=== PATIENT | male | born 1950 | race African-American/Black ===

== ENCOUNTER 2018-08-16 14:59 | Inpatient (IN) | payer MEDICARE, OTHER ==
[~2018-08-16] VITALS: Ht 167.6 cm; Wt 97.1 kg
[~2018-08-16 14:59] MED LIST: ASPI-650 PO; ASPI325T17 PO; CHOL200024 PO; DIAZ10TA PO; GLUC1TAB48 PO; MULT-658 PO; OMEG-14 PO; OXYC-307 PO; Testosterone TD; VALS1TAB28 PO
[2018-08-16 15:43] LABS: BASOPHILS # (AUTO) 0.04 x10^3/uL (0-0.1); BASOPHILS % (AUTO) 0 % (0-1); EOSINOPHILS # (AUTO) 0.49 x10^3/uL (0-0.4); EOSINOPHILS % (AUTO) 5 % (1-7); LYMPHOCYTES # (AUTO) 1.85 x10^3/uL (1-3.4); LYMPHOCYTES % (AUTO) 19 % (22-44); MD NO; MEAN CORPUSCULAR HEMOGLOBIN 33.6 pg (27.5-34.5); MEAN CORPUSCULAR VOLUME 98.8 fL (81-97); MEAN PLATELET VOLUME 7.9 fL (7.4-10.4); MONOCYTES # (AUTO) 1.07 x10^3/uL (0.2-0.8); MONOCYTES % (AUTO) 11 % (2-9); NEUTROPHILS # (AUTO) 6.37 x10^3/uL (1.8-6.8); NEUTROPHILS % (AUTO) 65 % (42-75); PLATELET COUNT 223 x10^3/uL (130-400); RED BLOOD COUNT 5.32 x10^6/uL (4.38-5.82); RED CELL DISTRIBUTION WIDTH 14.5 % (9.4-14.8)
[2018-08-16 15:51] LABS: ALBUMIN 3.6 g/dL (3.4-5.0); ANION GAP 9 mmol/L (5-15); CHLORIDE 105 mmol/L (98-107); CREATININE 1.12 mg/dL (0.7-1.3)
[2018-08-16 15:55] LABS: TROPONIN I 0.017 ng/mL (0.000-0.045)
[2018-08-16 16:04] LABS: INTERNATIONAL NORMALIZED RATIO 1.01 (0.93-1.1); PROTHROMBIN TIME 10.4 Seconds (9.6-11.5)
[2018-08-16] MEDS ORDERED: SODIUM CHLORIDE FLUSH 10ML SYR IVF PRN (18:00)
[2018-08-16] MEDS ORDERED: BISACODYL 10 MG SUPP PR PRN (19:30)
[2018-08-16] MEDS ORDERED: OXYcodone/APAP 10/325MG TABLET PO PRN (19:30)
[2018-08-16] MEDS ORDERED: ONDANSETRON ODT 4 MG PO PRN (19:30)
[2018-08-16] MEDS ORDERED: ACETAMINOPHEN 325 MG TABLET PO PRN (19:30)
[2018-08-16] MEDS ORDERED: POLYETHYLENE GLYCOL 17 GM PACKET PO PRN (19:30)
[2018-08-16 19:58] VITALS: BP 129/84
[2018-08-16 19:58] LABS: FOLATE LEVEL > 20.0 ng/mL (3.1-17.5)
[2018-08-16] MEDS: SODIUM CHLORIDE FLUSH 10ML SYR IVF SCH (21:00)
[2018-08-16] MEDS: ATORVASTATIN 40 MG TABLET PO SCH (21:55)
[2018-08-16 22:13] VITALS: BP 129/84
[2018-08-17 01:58] VITALS: BP 111/75
[2018-08-17 05:05] LABS: BASOPHILS # (AUTO) 0.07 x10^3/uL (0-0.1); BASOPHILS % (AUTO) 1 % (0-1); EOSINOPHILS # (AUTO) 0.65 x10^3/uL (0-0.4); EOSINOPHILS % (AUTO) 7 % (1-7); LYMPHOCYTES # (AUTO) 2.04 x10^3/uL (1-3.4); LYMPHOCYTES % (AUTO) 23 % (22-44); MD NO; MEAN CORPUSCULAR HEMOGLOBIN 33.8 pg (27.5-34.5); MEAN CORPUSCULAR VOLUME 99.3 fL (81-97); MEAN PLATELET VOLUME 8.1 fL (7.4-10.4); MONOCYTES # (AUTO) 0.91 x10^3/uL (0.2-0.8); MONOCYTES % (AUTO) 10 % (2-9); NEUTROPHILS # (AUTO) 5.39 x10^3/uL (1.8-6.8); NEUTROPHILS % (AUTO) 60 % (42-75); PLATELET COUNT 222 x10^3/uL (130-400); RED BLOOD COUNT 5.13 x10^6/uL (4.38-5.82); RED CELL DISTRIBUTION WIDTH 14.6 % (9.4-14.8)
[2018-08-17 05:15] LABS: ALANINE AMINOTRANSFERASE 38 U/L (12-78); ALBUMIN 3.2 g/dL (3.4-5.0); ANION GAP 7 mmol/L (5-15); CALCIUM 7.9 mg/dL (8.5-10.1); CHLORIDE 105 mmol/L (98-107); CHOLESTEROL, TOTAL 110 mg/dL (140-239); CREATININE 1.04 mg/dL (0.7-1.3)
[2018-08-17 05:17] LABS: ALKALINE PHOSPHATASE 46 U/L (45-117); BILIRUBIN,TOTAL 0.2 mg/dL (0.2-1.0); CHOL/HDL RATIO 2.6; HDL CHOL % 38 % (26-37); HDL CHOLESTEROL (DIRECT) 42 mg/dL (40-60); LDL CHOLESTEROL,CALCULATED 49 mg/dL (54-169); LDL/HDL RATIO 1.2 (0.5-3.0); TOTAL PROTEIN 6.6 g/dL (6.4-8.2); TRIGLYCERIDES 95 mg/dL (50-200); VLDL CHOLESTEROL 19 mg/dL (0-25)
[2018-08-17] MEDS ORDERED: ZOLP5TAB6 PO (08:14)
[2018-08-17] MEDS: VALSARTAN 320 MG TABLET PO SCH (08:15)
[2018-08-17] MEDS: MULTIVITAMIN 1 TABLET PO SCH (08:16)
[2018-08-17] MEDS: SODIUM CHLORIDE FLUSH 10ML SYR IVF SCH ×2 (08:16→21:00)
[2018-08-17] MEDS: ASPIRIN 325 MG TABLET PO SCH (08:16)
[2018-08-17] MEDS: CHOLECALCIFEROL 1,000 UNIT TABLET PO SCH (08:16)
[2018-08-17] MEDS: CLOPIDOGREL 75 MG TABLET PO SCH (08:16)
[2018-08-17] MEDS: OMEGA-3/FISH OIL CAPSULE PO SCH (08:16)
[2018-08-17] MEDS: HYDROCHLOROTHIAZIDE 12.5 MG CAPSULE PO SCH (08:17)
[2018-08-17] MEDS: TESTOSTERONE TD SCH (08:22)
[2018-08-17] MEDS: SENNA/DOCUSATE TABLET PO SCH (08:22)
[2018-08-17] MEDS ORDERED: [UNRECOGNIZED DRUG - OTHER] PO SCH (09:00)
[2018-08-17] MEDS ORDERED: GLUCOSAM CHONDRO HERB PO SCH (09:00)
[2018-08-17 09:10] VITALS: BP 116/75
[2018-08-17] MEDS ORDERED: SPIR50TA4 PO (10:14)
[2018-08-17] MEDS ORDERED: ATOR10TA9 PO (10:31)
[2018-08-17 13:33] VITALS: BP 127/82
[2018-08-17 19:25] VITALS: BP 118/72
[2018-08-17] MEDS: ATORVASTATIN 40 MG TABLET PO SCH (21:06)
[2018-08-18 01:50] VITALS: BP 109/69
[2018-08-18 08:11] VITALS: BP 104/71
[2018-08-18] MEDS: HYDROCHLOROTHIAZIDE 12.5 MG CAPSULE PO SCH (08:20)
[2018-08-18] MEDS: MULTIVITAMIN 1 TABLET PO SCH (08:21)
[2018-08-18] MEDS: CHOLECALCIFEROL 1,000 UNIT TABLET PO SCH (08:21)
[2018-08-18] MEDS: OMEGA-3/FISH OIL CAPSULE PO SCH (08:21)
[2018-08-18] MEDS: VALSARTAN 320 MG TABLET PO SCH (08:21)
[2018-08-18] MEDS: CLOPIDOGREL 75 MG TABLET PO SCH (08:21)
[2018-08-18] MEDS: SENNA/DOCUSATE TABLET PO SCH (08:21)
[2018-08-18] MEDS: ASPIRIN 325 MG TABLET PO SCH (08:21)
[2018-08-18] MEDS: SODIUM CHLORIDE FLUSH 10ML SYR IVF SCH (08:22)
[2018-08-18] MEDS: TESTOSTERONE TD SCH (08:22)
[2018-08-18] MEDS ORDERED: ATOR40TA78 PO (09:13)
[2018-08-18] MEDS ORDERED: ASPI325T17 PO (09:13)
[2018-08-18] MEDS ORDERED: CLOP75TA PO (09:13)
[2018-08-18 13:28] VITALS: BP 103/63
== END 2018-08-18 15:32 | disposition home or self-care (01) | DRG 66 ==
LOC: ED 15:47 → EDIP 17:55 → 4WST 19:14
PROVIDERS: ADMIT Hospitalist; ATTEND Hospitalist
DX: I63.9 Cerebral infarction, unspecified (principal); D75.89 Other specified diseases of blood and blood-forming organs; I11.9 Hypertensive heart disease without heart failure; I25.10 Atherosclerotic heart disease of native coronary artery without angina pectoris; I25.2 Old myocardial infarction; I45.10 Unspecified right bundle-branch block; M48.02 Spinal stenosis, cervical region; M50.30 Other cervical disc degeneration, unspecified cervical region; Z79.02 Long term (current) use of antithrombotics/antiplatelets; Z82.49 Family history of ischemic heart disease and other diseases of the circulatory system; Z86.73 Personal history of transient ischemic attack (TIA), and cerebral infarction without residual deficits; Z96.642 Presence of left artificial hip joint
CPT/HCPCS: 0399T; 36415; 70450; 70544; 70547; 70551; 72141; 80048; 80053; 80061; 82040; 82607; 82746; 84484; 85025; 85610; 85730; 93005; 93306; G0378

== ENCOUNTER → 2018-09-03 | Outpatient (CLI) | payer MEDICARE, OTHER ==
[~2018-09-03] MED LIST changes: +ATOR10TA9 PO; +ATOR40TA78 PO; +CLOP75TA PO; +SPIR50TA4 PO; +ZOLP5TAB6 PO
== END | disposition home or self-care (01) ==
LOC: RAD 15:23
PROVIDERS: ATTEND Neurological Surgery
DX: M50.30 Other cervical disc degeneration, unspecified cervical region (principal); M43.8X2 Other specified deforming dorsopathies, cervical region
CPT/HCPCS: 72050

== ENCOUNTER → 2018-10-11 | Outpatient (CLI) | payer MEDICARE, OTHER | END | disposition home or self-care (01) | LOC: RAD 14:41 | PROVIDERS: ATTEND Neurological Surgery | DX: M50.321 Other cervical disc degeneration at C4-C5 level (principal); M48.02 Spinal stenosis, cervical region; M79.601 Pain in right arm; M79.602 Pain in left arm | CPT/HCPCS: 72125 ==

== ENCOUNTER 2018-10-28 10:00 | Inpatient (IN) | payer MEDICARE, OTHER ==
[~2018-10-28] VITALS: Ht 167.6 cm; Wt 98.2 kg
[2018-10-28 10:35] VITALS: BP 146/85
[2018-10-28] MEDS ORDERED: ATOR10TA PO (10:35)
[2018-10-28 11:05] LABS: MICROSCOPIC NOT IND
[2018-10-28 11:08] LABS: CULTURE INDICATED? NO
[2018-10-28 11:26] LABS: BASOPHILS # (AUTO) 0.07 x10^3/uL (0-0.1); BASOPHILS % (AUTO) 1 % (0-1); EOSINOPHILS # (AUTO) 0.37 x10^3/uL (0-0.4); EOSINOPHILS % (AUTO) 5 % (1-7); LYMPHOCYTES # (AUTO) 1.54 x10^3/uL (1-3.4); LYMPHOCYTES % (AUTO) 18 % (22-44); MD NO; MEAN CORPUSCULAR HEMOGLOBIN 33.5 pg (27.5-34.5); MEAN CORPUSCULAR HGB CONC 34.1 g/dL (33.2-36.2); MEAN CORPUSCULAR VOLUME 98.3 fL (81-97); MEAN PLATELET VOLUME 8.2 fL (7.4-10.4); MONOCYTES # (AUTO) 0.74 x10^3/uL (0.2-0.8); MONOCYTES % (AUTO) 9 % (2-9); NEUTROPHILS # (AUTO) 5.62 x10^3/uL (1.8-6.8); NEUTROPHILS % (AUTO) 67 % (42-75); PLATELET COUNT 216 x10^3/uL (130-400); RED BLOOD COUNT 5.28 x10^6/uL (4.38-5.82); RED CELL DISTRIBUTION WIDTH 12.9 % (9.4-14.8)
[2018-10-28 11:34] LABS: INTERNATIONAL NORMALIZED RATIO 1.03 (0.93-1.1); PROTHROMBIN TIME 10.9 Seconds (9.6-11.5)
[2018-10-28 11:40] LABS: ALBUMIN 3.9 g/dL (3.4-5.0); ANION GAP 6 mmol/L (5-15); CHLORIDE 109 mmol/L (98-107)
[2018-10-28 11:44] LABS: ALANINE AMINOTRANSFERASE 37 U/L (12-78); ALKALINE PHOSPHATASE 56 U/L (45-117); BILIRUBIN,TOTAL 0.7 mg/dL (0.2-1.0); CREATININE 1.06 mg/dL (0.7-1.3); TOTAL PROTEIN 7.5 g/dL (6.4-8.2)
[2018-10-30] MEDS ORDERED: LACTATED RINGERS 1,000 ML IV SCH (06:06)
[2018-10-30] MEDS ORDERED: BIOF1TAB6 PO (06:10)
[2018-10-30] MEDS ORDERED: THROMBIN 5,000 UNIT VIAL TP ONE (06:14)
[2018-10-30] MEDS ORDERED: BUPIVACAINE/PF-EPI 0.5% 1:200K ONE (06:14)
[2018-10-30] MEDS ORDERED: BACITRACIN 50,000 UNIT ONE (06:14)
[2018-10-30] MEDS ORDERED: MIDAZOLAM 1 MG/ML, 2ML ONE (06:48)
[2018-10-30] MEDS ORDERED: FENTANYL PF 250 MCG/5ML ONE ×2 (06:49→07:40)
[2018-10-30] MEDS ORDERED: PROPOFOL 100 ML ONE ×2 (06:50→10:01)
[2018-10-30] MEDS ORDERED: PHENYLEPHRINE 10 MG/ML ONE (07:09)
[2018-10-30] MEDS ORDERED: PROPOFOL 10 MG/ML, 50ML ONE (07:09)
[2018-10-30] MEDS ORDERED: ALBUTEROL SULFATE 200 PUFFS/8.5 GR INH ONE (07:09)
[2018-10-30] MEDS ORDERED: OXYcodone 5 MG/5 ML ORAL.SOL UDC PO PRN (07:30)
[2018-10-30] MEDS ORDERED: MEPERIDINE/PF 25MG/0.5ML IVPush PRN (07:30)
[2018-10-30] MEDS ORDERED: ONDANSETRON 2MG/ML, 2ML IV PRN ×2 (07:30→13:00)
[2018-10-30] MEDS ORDERED: HYDROmorphone 2 MG/ML, 1ML IVPush PRN (07:30)
[2018-10-30] MEDS ORDERED: ACETAMINOPHEN 325 MG TABLET PO PRN (07:30)
[2018-10-30] MEDS ORDERED: hydrALAzine 20 MG/ML, 1ML IV PRN ×2 (07:30→11:00)
[2018-10-30] MEDS ORDERED: PROMETHAZINE 25 MG/ML, 1ML IV PRN (07:30)
[2018-10-30] MEDS ORDERED: LABETALOL 5MG/ML, 20ML IV PRN ×2 (07:30→11:00)
[2018-10-30] MEDS ORDERED: DIAZEPAM 5 MG/ML, 2ML IVPush PRN (07:30)
[2018-10-30] MEDS ORDERED: ONDANSETRON ODT 8 MG PO PRN (07:30)
[2018-10-30] MEDS ORDERED: PROPOFOL 10 MG/ML, 20ML ONE (08:57)
[2018-10-30] MEDS ORDERED: SUCCINYLCHOLINE 20 MG/ML, 10ML ONE (08:57)
[2018-10-30] MEDS ORDERED: LIDOCAINE-MPF 2% ,5ML ONE ×3 (08:57)
[2018-10-30] MEDS ORDERED: NEOSTIGMINE 1 MG/ML, 10ML ONE (08:57)
[2018-10-30] MEDS ORDERED: ROCURONIUM 10MG/ML,5ML ONE (08:57)
[2018-10-30] MEDS ORDERED: DEXAMETHASONE 4 MG/ML, 1ML ONE (08:57)
[2018-10-30] MEDS ORDERED: CEFAZOLIN 1,000 MG ONE (08:57)
[2018-10-30] MEDS ORDERED: GLYCOPYRROLATE 0.2MG/1ML, 5ML ONE (08:57)
[2018-10-30] MEDS ORDERED: ONDANSETRON 2MG/ML, 2ML ONE (08:57)
[2018-10-30] MEDS ORDERED: ALBUTEROL/IPRATROPIUM 2.5MG/0.5MG, 3 ML NPPB PRN (11:00)
[2018-10-30] MEDS ORDERED: ACETAMINOPHEN 650 MG/20.3 ML UDC ONE (11:29)
[2018-10-30] MEDS ORDERED: OXYcodone 5 MG/5 ML ORAL.SOL UDC ONE (11:29)
[2018-10-30] MEDS ORDERED: FENTANYL PF 100 MCG/2ML ONE (11:29)
[2018-10-30] MEDS ORDERED: METHOCARBAMOL 1,000 MG in DEXTROSE 5% 100 ML IV ONE (11:30)
[2018-10-30] MEDS: FENTANYL PF 100 MCG/2ML IV PRN ×2 (11:34→11:41)
[2018-10-30] MEDS ORDERED: PHARMACY MAY ADJ FOR RENAL FX MC PRN (12:30)
[2018-10-30] MEDS ORDERED: HYDROcodone/APAP 5/325 TABLET PO PRN (13:00)
[2018-10-30] MEDS ORDERED: DIPHENHYDRAMINE 50 MG/ML, 1ML IVPush PRN (13:00)
[2018-10-30] MEDS ORDERED: DIPHENHYDRAMINE 50 MG/ML, 1ML IM PRN (13:00)
[2018-10-30] MEDS ORDERED: MAGNESIUM HYDROXIDE 8%, 30ML UDC PO PRN (13:00)
[2018-10-30] MEDS ORDERED: PROMETHAZINE 25 MG/ML, 1ML IM PRN (13:00)
[2018-10-30] MEDS: LABETALOL 5MG/ML, 20ML IV SCH ×2 (13:00→20:16)
[2018-10-30] MEDS ORDERED: morphine SULFATE 10 MG/ML, 1ML IV PRN (13:00)
[2018-10-30] MEDS ORDERED: DIPHENHYDRAMINE 50 MG CAPSULE PO PRN (13:00)
[2018-10-30] MEDS ORDERED: BISACODYL 10 MG SUPP PR PRN (13:00)
[2018-10-30] MEDS: METHOCARBAMOL 750 MG TABLET PO SCH ×2 (13:47→18:19)
[2018-10-30 14:00] VITALS: BP 137/80
[2018-10-30] MEDS: D5%-0.9% NACL+KCL 20MEQ 1,000 ML IV SCH (14:58)
[2018-10-30] MEDS: OXYcodone/APAP 5/325MG TABLET PO PRN ×2 (16:04→22:08)
[2018-10-30] MEDS: CEFAZOLIN PMX 1GM/50ML 50 ML IVPB SCH (18:19)
[2018-10-30 18:58] VITALS: BP 157/83
[2018-10-30] MEDS: ATORVASTATIN 10 MG TABLET PO SCH (20:16)
[2018-10-30 23:43] VITALS: BP 123/70
[2018-10-31] MEDS: D5%-0.9% NACL+KCL 20MEQ 1,000 ML IV SCH ×3 (00:57→21:00)
[2018-10-31] MEDS: METHOCARBAMOL 750 MG TABLET PO SCH ×4 (00:57→19:06)
[2018-10-31] MEDS: CEFAZOLIN PMX 1GM/50ML 50 ML IVPB SCH (02:20)
[2018-10-31 04:23] VITALS: BP 123/70
[2018-10-31] MEDS ORDERED: ENOXAPARIN 40 MG/0.4 ML SQ SCH (06:00)
[2018-10-31] MEDS ORDERED: LABETALOL 20 MG/4 ML ONE ×2 (06:11→13:25)
[2018-10-31] MEDS: LABETALOL 5MG/ML, 20ML IV SCH ×3 (06:17→20:28)
[2018-10-31 08:21] VITALS: BP 112/71
[2018-10-31] MEDS: VALSARTAN 320 MG TABLET PO SCH (09:00)
[2018-10-31] MEDS: SPIRONOLACTONE 50 MG TABLET PO SCH (09:00)
[2018-10-31] MEDS: HYDROCHLOROTHIAZIDE 12.5 MG CAPSULE PO SCH (09:00)
[2018-10-31] MEDS: OMEGA-3/FISH OIL CAPSULE PO SCH (09:34)
[2018-10-31] MEDS: CHOLECALCIFEROL 1,000 UNIT TABLET PO SCH (09:34)
[2018-10-31] MEDS: SENNA/DOCUSATE TABLET PO SCH (09:34)
[2018-10-31] MEDS: MULTIVITAMIN 1 TABLET PO SCH (09:34)
[2018-10-31] MEDS: OXYcodone/APAP 5/325MG TABLET PO PRN ×3 (09:35→20:26)
[2018-10-31] MEDS: MULTIVITS,STRESS FORMULA 1 TABLET PO SCH (09:38)
[2018-10-31] MEDS ORDERED: SENN1TAB8 PO (09:52)
[2018-10-31] MEDS ORDERED: METH750T87 PO (09:54)
[2018-10-31] MEDS ORDERED: OXYC-307 PO (09:54)
[2018-10-31 13:37] VITALS: BP 147/80
[2018-10-31 14:30] VITALS: BP 113/74
[2018-10-31 19:11] VITALS: BP 145/76
[2018-10-31] MEDS: ATORVASTATIN 10 MG TABLET PO SCH (20:26)
[2018-11-01 00:42] VITALS: BP 114/74
[2018-11-01] MEDS: METHOCARBAMOL 750 MG TABLET PO SCH ×2 (00:42→07:22)
[2018-11-01] MEDS: OXYcodone/APAP 5/325MG TABLET PO PRN ×3 (00:43→10:36)
[2018-11-01] MEDS: LABETALOL 5MG/ML, 20ML IV SCH ×2 (04:38→09:09)
[2018-11-01] MEDS: D5%-0.9% NACL+KCL 20MEQ 1,000 ML IV SCH (07:19)
[2018-11-01 07:21] VITALS: BP 118/75
[2018-11-01] MEDS: SPIRONOLACTONE 50 MG TABLET PO SCH (09:07)
[2018-11-01] MEDS: OMEGA-3/FISH OIL CAPSULE PO SCH (09:07)
[2018-11-01] MEDS: CHOLECALCIFEROL 1,000 UNIT TABLET PO SCH (09:08)
[2018-11-01] MEDS: HYDROCHLOROTHIAZIDE 12.5 MG CAPSULE PO SCH (09:08)
[2018-11-01] MEDS: MULTIVITS,STRESS FORMULA 1 TABLET PO SCH (09:08)
[2018-11-01] MEDS: SENNA/DOCUSATE TABLET PO SCH (09:08)
[2018-11-01] MEDS: MULTIVITAMIN 1 TABLET PO SCH (09:08)
[2018-11-01] MEDS: VALSARTAN 320 MG TABLET PO SCH (09:08)
[2018-11-01 11:57] VITALS: BP 100/66
== END 2018-11-01 13:30 | disposition home or self-care (01) | DRG 471 ==
LOC: ORIP 10-30 05:17 → EDSTATUS 10-30 10:00 → 4NOR 10-30 12:13 → DCLOUNGE 11-01 13:21
PROVIDERS: ADMIT Neurological Surgery; ATTEND Neurological Surgery
PROC: 0RB30ZZ Excision of Cervical Vertebral Disc, Open Approach (ICD-10-PCS; 2018-10-30)
PROC: 4A11X4G Monitoring of Peripheral Nervous Electrical Activity, Intraoperative, External Approach (ICD-10-PCS; 2018-10-30)
PROC: 00NW0ZZ Release Cervical Spinal Cord, Open Approach (ICD-10-PCS; 2018-10-30)
PROC: 01N10ZZ Release Cervical Nerve, Open Approach (ICD-10-PCS; 2018-10-30)
PROC: 0RG20A0 Fusion of 2 or more Cervical Vertebral Joints with Interbody Fusion Device, Anterior Approach, Anterior Column, Open Approach (ICD-10-PCS; principal; 2018-10-30 07:00)
DX: M48.02 Spinal stenosis, cervical region (principal); R53.2 Functional quadriplegia; M47.12 Other spondylosis with myelopathy, cervical region; M50.021 Cervical disc disorder at C4-C5 level with myelopathy; E66.9 Obesity, unspecified; M40.202 Unspecified kyphosis, cervical region; M43.12 Spondylolisthesis, cervical region; I10 Essential (primary) hypertension; I25.10 Atherosclerotic heart disease of native coronary artery without angina pectoris; I25.5 Ischemic cardiomyopathy; G62.9 Polyneuropathy, unspecified; I25.2 Old myocardial infarction; Z68.35 Body mass index [BMI] 35.0-35.9, adult; Z87.891 Personal history of nicotine dependence
CPT/HCPCS: 36415; 71046; 72040; 80053; 81003; 85025; 85610; 85730; 93005; C1713; G0378; J0690; J1100; J1650; J2250; J2405; J2704; J2710; J3010; J3490; C1762; J0330; J2370; J2800; J3480; J7120

== ENCOUNTER → 2018-10-29 | Outpatient (CLI) | payer MEDICARE, OTHER ==
[~2018-10-29] MED LIST changes: +ATOR10TA PO; +BIOF1TAB6 PO; +METH750T87 PO; +SENN1TAB8 PO
[2018-10-29 08:42] LABS: CHOL/HDL RATIO 2.4; LDL/HDL RATIO 0.9 (0.5-3.0)
== END | disposition home or self-care (01) ==
LOC: LAB 08:18
PROVIDERS: ATTEND Family Medicine
DX: I10 Essential (primary) hypertension (principal); I25.10 Atherosclerotic heart disease of native coronary artery without angina pectoris; E78.5 Hyperlipidemia, unspecified; M48.02 Spinal stenosis, cervical region
CPT/HCPCS: 36415; 80061

== ENCOUNTER → 2021-06-14 | Outpatient (CLI) | payer MEDICARE, OTHER ==
[~2021-06-14] MED LIST changes: -ASPI-650 PO; +ASPI325T20 PO; -OXYC-307 PO; +OXYC-380 PO; +SENN-177 PO; -SENN1TAB8 PO; -VALS1TAB28 PO; +VALS1TAB29 PO
== END | disposition home or self-care (01) ==
LOC: CFH 08:48
PROVIDERS: ATTEND Internal Medicine Cardiovascular Disease
DX: I11.9 Hypertensive heart disease without heart failure (principal); I25.5 Ischemic cardiomyopathy; I25.2 Old myocardial infarction; I25.10 Atherosclerotic heart disease of native coronary artery without angina pectoris
CPT/HCPCS: 93306; 93356